=== PATIENT | male | born 1940 | race Caucasian/White ===

== ENCOUNTER 2016-05-02 07:52 | Day surgery (SDC) | payer OTHER, BC ==
[2016-05-01 12:35] VITALS: BMI 30.8
[2016-05-02] MEDS ORDERED: PROPOFOL 20 ML ONE (08:39)
[2016-05-02 09:20] VITALS: TEMP 97.9
[2016-05-02 10:01] VITALS: BP 149/74; PULSE 51
--- NOTE | 2016-05-05 11:28 | PATH ---
Surgical Pathology Report Patient Name: EDMUND NIEVES [facility]. Rec. #: [id number] /Age/Gender: 1940 (Age: 76) / M Account: [id number] Location: U-ENDOSCOPY Taken: 05/02/2016 Received: 05/02/2016 Reported: 05/05/2016 Physicians: Sweta Castellano M.D. Specimen(s) Received A: BX CECAL POLYP B: BX RIGHT COLON POLYP Clinical History Colon cancer screening Colon polyps, diverticulosis Final Diagnosis A. COLON, CECUM, POLYP, BIOPSY: FRAGMENTS OF TUBULAR ADENOMA. B. COLON, RIGHT, POLYP, BIOPSY: POLYPOID FRAGMENT OF COLONIC MUCOSA WITH REACTIVE LYMPHOID AGGREGATE AND FOCAL SURFACE HYPERPLASTIC CHANGE. Electronically Signed Roddy Vega M.D. Gross Description A. Received in formalin, labeled "biopsy cecal polyp" are [address] street, irregular portions of soft tissue averaging 0.3 cm. in greatest dimension. The specimens are submitted in toto in one cassette. B. Received in formalin, labeled "biopsy right colon polyp" is a street, irregular portion of soft tissue measuring 0.4 cm in greatest dimension. The specimen is submitted in toto in one cassette. 05/02/201605/02/2016
== END 2016-05-02 10:07 | disposition home or self-care (01) ==
LOC: JASU-ENDO 07:52
PROVIDERS: ATTEND Internal Medicine Gastroenterology
PROC: 0DBK8ZX Excision of Ascending Colon, Via Natural or Artificial Opening Endoscopic, Diagnostic (ICD-10-PCS; 2016-05-02)
PROC: 0DBH8ZX Excision of Cecum, Via Natural or Artificial Opening Endoscopic, Diagnostic (ICD-10-PCS; principal; 2016-05-02 09:00)
DX: K59.00 Constipation, unspecified (principal); D12.0 Benign neoplasm of cecum; K63.5 Polyp of colon; K57.30 Diverticulosis of large intestine without perforation or abscess without bleeding; K64.8 Other hemorrhoids; I10 Essential (primary) hypertension; I25.2 Old myocardial infarction; E78.5 Hyperlipidemia, unspecified; R73.03 Prediabetes
CPT/HCPCS: 88305-TC

== ENCOUNTER 2020-10-17 04:39 | Day surgery (SDC) | payer OTHER, BC ==
[2020-10-12 14:36] VITALS: BMI 30.5
[2020-10-17 09:43] VITALS: TEMP 96.8
[2020-10-17 13:48] VITALS: BP 137/79; PULSE 57
== END 2020-10-17 13:00 | disposition home or self-care (01) ==
LOC: JASU-ENDO 04:39
PROVIDERS: ATTEND Internal Medicine Gastroenterology
PROC: 0DBL8ZX Excision of Transverse Colon, Via Natural or Artificial Opening Endoscopic, Diagnostic (ICD-10-PCS; 2020-10-17)
PROC: 0DBK8ZX Excision of Ascending Colon, Via Natural or Artificial Opening Endoscopic, Diagnostic (ICD-10-PCS; principal; 2020-10-17 09:00)
DX: K63.89 Other specified diseases of intestine (principal); K57.30 Diverticulosis of large intestine without perforation or abscess without bleeding; K64.8 Other hemorrhoids; Z86.010 Personal history of colon polyps